=== PATIENT | female | born 1985 | race Caucasian/White ===

== ENCOUNTER 2019-03-14 05:08 | Inpatient (IN) | payer BC ==
[2019-03-14] MEDS ORDERED: Lidocaine 1% 50 ML MDV INJECT PRN (05:21)
[2019-03-14] MEDS ORDERED: Water For Irrigation,Sterile 1,000 ML Container IRR PRN (05:21)
[2019-03-14] MEDS ORDERED: Methylergonovine 0.2 MG/1 ML Amp IM PRN ×2 (05:21→11:26)
[2019-03-14] MEDS ORDERED: Sodium Chloride 0.9% 2.5 ML Syringe FLUSH PRN (05:21)
[2019-03-14] MEDS ORDERED: Sodium Chloride 0.9% 10 ML SDV IV PRN (05:21)
[2019-03-14] MEDS ORDERED: Sodium Chloride 0.9% 10 ML Syringe FLUSH PRN (05:21)
[2019-03-14] MEDS ORDERED: Tranexamic Acid 1,000 MG in Sodium Chloride 0.9% 100 ML IV PRN (05:21)
[2019-03-14] MEDS ORDERED: Nalbuphine 10 MG/1 ML Vial IVPUSH PRN (05:21)
[2019-03-14] MEDS ORDERED: Ondansetron 4 MG/2 ML SDV IVPUSH PRN (05:21)
[2019-03-14] MEDS ORDERED: Butorphanol 1 MG/ML SDV IVPUSH PRN (05:21)
[2019-03-14] MEDS ORDERED: Terbutaline 1 MG/ML SDV SUBCUT PRN (05:21)
[2019-03-14] MEDS ORDERED: Carboprost Tromethamine 250 MCG/1 ML Amp IM PRN (05:21)
[2019-03-14] MEDS ORDERED: Misoprostol 200 MCG Tab PO PRN (05:21)
[2019-03-14] MEDS ORDERED: Oxytocin/0.9 % Sodium Chloride 30 UNIT/500 ML BAG IV SCH ×2 (05:30)
[2019-03-14] MEDS: Lactated Ringers 1,000 ML IV SCH ×2 (05:40→09:23)
--- NOTE | 2019-03-14 09:38 | PCM.PREANE ---
Preanesthetic Assessment - Anesthesia/Transfusion/Family Hx Anesthesia History: Prior Anesthesia Without Reaction Family History of Anesthesia Reaction: No Transfusion History: No Prior Transfusion(s) - Review of Systems General: No Symptoms Pulmonary: No Symptoms Cardiovascular: No Symptoms Gastrointestinal: No Symptoms Neurological: No Symptoms Other: Reports: None - Physical Assessment NPO Status Date: 03/14/19 NPO Status Time: 09:00 (water) Height: 5 ft 5 in Weight: 73.482 kg ASA Class: 2E Mental Status: Alert & Oriented x3 Airway Class: Mallampati = 1 Dentition: Reports: Normal Dentition Thyro-Mental Finger Breadths: 3 ROM/Head Extension: Full Lungs: Clear to Auscultation, Normal Respiratory Effort Cardiovascular: Regular Rate, Regular Rhythm - Lab Values: Laboratory Last Values WBC 6.07 K/uL (4.0-11.0) 03/14/19 05:33 RBC 3.94 M/uL (4.30-5.90) L 03/14/19 05:33 Hgb 12.4 g/dL (12.0-16.0) 03/14/19 05:33 Hct 36.5 % (36.0-46.0) 03/14/19 05:33 MCV 92.6 fL (80.0-98.0) 03/14/19 05:33 MCH 31.5 pg (27.0-32.0) 03/14/19 05:33 MCHC 34.0 g/dL (31.0-37.0) 03/14/19 05:33 RDW Std Deviation 44.9 fl (28.0-62.0) 03/14/19 05:33 RDW Coeff of Graham 13 % (11.0-15.0) 03/14/19 05:33 Plt Count 210 K/uL (150-400) 03/14/19 05:33 MPV 11.80 fL (7.40-12.00) 03/14/19 05:33 Nucleated RBC % 0.0 /100WBC 03/14/19 05:33 Nucleated RBCs # 0 K/uL 03/14/19 05:33 Blood Type A POSITIVE 03/14/19 05:33 Antibody Screen NEGATIVE 03/14/19 05:33 - Allergies Allergies/Adverse Reactions: Allergies Allergy/AdvReac Type Severity Reaction Status Date / Time cefaclor [From [facility]] Allergy Rash Verified 03/14/19 05:20 - Acknowledgements Anesthesia Type Planned: Epidural Pt an Appropriate Candidate for the Planned Anesthesia: Yes Alternatives and Risks of Anesthesia Discussed w Pt/Guardian: Yes Pt/Guardian Understands and Agrees with Anesthesia Plan: Yes PreAnesthesia Questionnaire HEENT History: Reports: 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: Neurological History: Reports: Migraines Hematologic History: Reports: Other (See Below) Other Hematologic History: gestational thrombocytopenia - Past Surgical History HEENT Surgical History: Reports: Oral Surgery Neurological Surgical History: Reports: None - SUBSTANCE USE Smoking Status *Q: Never Smoker Recreational Drug Use History: No - HOME MEDS Home Medications: Home Meds Doxylamine Succinate [Unisom] 25 mg PO PRN 03/14/19 [History] PNV95/Ferrous Fumarate/FA [ Tablet] 1 tab PO DAILY 03/14/19 [History] - CURRENT (IN HOUSE) MEDS Current Meds: Current Medications Butorphanol Tartrate (Stadol) 1 mg IVPUSH Q1H PRN PRN Reason: Pain Carboprost Tromethamine (Hemabate Ds) 250 mcg IM ASDIRECTED PRN PRN Reason: Post Hemorrhage Lactated Ringer's (Ringers, Lactated) 1,000 mls @ 150 mls/hr IV ASDIRECTED BETTIE Last Admin: 03/14/19 09:23 Dose: 150 mls/hr Oxytocin/Sodium Chloride (Oxytocin 30 Unit/500 Ml-Ns) 30 unit in 500 mls @ 999 mls/hr IV TITRATE BETTIE Oxytocin/Sodium Chloride (Oxytocin 30 Unit/500 Ml-Ns) 30 unit in 500 mls @ 2 mls/hr IV TITRATE BETTIE; Protocol Last Titration: 03/14/19 08:38 Dose: 12 munits/min, 12 mls/hr Tranexamic Acid 1,000 mg/ (Sodium Chloride) 110 mls @ 660 mls/hr IV ONETIME PRN PRN Reason: Bleeding Lidocaine HCl (Xylocaine 1%) 50 ml INJECT ONETIME PRN PRN Reason: Laceration repair Methylergonovine Maleate (Methergine) 0.2 mg IM ASDIRECTED PRN PRN Reason: Post Hemorrhage Misoprostol (Cytotec) 200 mcg PO ONETIME PRN PRN Reason: Post Hemorrhage Nalbuphine HCl (Nubain) 10 mg IVPUSH Q1H PRN PRN Reason: Pain (severe 7-10) Ondansetron HCl (Zofran) 4 mg IVPUSH Q6H PRN PRN Reason: Nausea/Vomiting Sodium Chloride (Saline Flush) 10 ml FLUSH ASDIRECTED PRN PRN Reason: Keep Vein Open Sodium Chloride (Saline Flush) 2.5 ml FLUSH ASDIRECTED PRN PRN Reason: Keep Vein Open Sodium Chloride (Normal Saline) 10 ml IV ASDIRECTED PRN PRN Reason: IV Use Sterile Water (Sterile Water For Irrigation) 1,000 ml IRR ASDIRECTED PRN PRN Reason: delivery Terbutaline Sulfate (Brethine) 0.25 mg SUBCUT ASDIRECTED PRN PRN Reason: Tacysystole Discontinued Medications Fentanyl/Bupivacaine HCl (Cnhgkznh-Arafd-Nc 2 Mcg/Ml-0.125%) Confirm Administered Dose 100 mls @ as directed .ROUTE .[facility]-MED ONE Stop: 03/14/19 09:13
--- NOTE | 2019-03-14 11:23 | PCM.DEL ---
L & D Note - General Info Date of Service: 03/14/19 Mother's Due Date: 03/15/19 - Delivery Note Labor: Augmented by ARM, Induced by Oxytocin Delivery Outcome: Livebirth Delivery Method: Spontaneous Vaginal Delivery-Single Presentation: Left Occiput Anterior (CESAR) Nuchal Cord: None Anesthesia Type: None Amniotic Fluid Description: Clear Episiotomy Type: None Laceration: None Placenta: Intact, Spontaneous Cord: 3 Vessels Estimated Blood Loss: 200 Resuscitation Needed: No : Suctioned Score 1 min: 8 Score 5 min: 8 - General Info Date of Service: 03/14/19 - Patient Data Weight - Most Recent: 73.482 kg Lab Results Last 24 Hours: Laboratory Results - last 24 hr 03/14/19 03/14/19 Range/Units 05:33 05:33 WBC 6.07 (4.0-11.0) K/uL RBC 3.94 L (4.30-5.90) M/uL Hgb 12.4 (12.0-16.0) g/dL Hct 36.5 (36.0-46.0) % MCV 92.6 (80.0-98.0) fL MCH 31.5 (27.0-32.0) pg MCHC 34.0 (31.0-37.0) g/dL RDW Std Deviation 44.9 (28.0-62.0) fl RDW Coeff of Graham 13 (11.0-15.0) % Plt Count 210 (150-400) K/uL MPV 11.80 (7.40-12.00) fL Nucleated RBC % 0.0 /100WBC Nucleated RBCs # 0 K/uL Blood Type A POSITIVE Antibody Screen NEGATIVE Med Orders - Current: Current Medications Butorphanol Tartrate (Stadol) 1 mg IVPUSH Q1H PRN PRN Reason: Pain Carboprost Tromethamine (Hemabate Ds) 250 mcg IM ASDIRECTED PRN PRN Reason: Post Hemorrhage Lactated Ringer's (Ringers, Lactated) 1,000 mls @ 150 mls/hr IV ASDIRECTED BETTIE Last Admin: 03/14/19 09:23 Dose: 150 mls/hr Oxytocin/Sodium Chloride (Oxytocin 30 Unit/500 Ml-Ns) 30 unit in 500 mls @ 999 mls/hr IV TITRATE BETTIE Oxytocin/Sodium Chloride (Oxytocin 30 Unit/500 Ml-Ns) 30 unit in 500 mls @ 2 mls/hr IV TITRATE BETTIE; Protocol Last Titration: 03/14/19 08:38 Dose: 12 munits/min, 12 mls/hr Tranexamic Acid 1,000 mg/ (Sodium Chloride) 110 mls @ 660 mls/hr IV ONETIME PRN PRN Reason: Bleeding Lidocaine HCl (Xylocaine 1%) 50 ml INJECT ONETIME PRN PRN Reason: Laceration repair Methylergonovine Maleate (Methergine) 0.2 mg IM ASDIRECTED PRN PRN Reason: Post Hemorrhage Misoprostol (Cytotec) 200 mcg PO ONETIME PRN PRN Reason: Post Hemorrhage Nalbuphine HCl (Nubain) 10 mg IVPUSH Q1H PRN PRN Reason: Pain (severe 7-10) Ondansetron HCl (Zofran) 4 mg IVPUSH Q6H PRN PRN Reason: Nausea/Vomiting Sodium Chloride (Saline Flush) 10 ml FLUSH ASDIRECTED PRN PRN Reason: Keep Vein Open Sodium Chloride (Saline Flush) 2.5 ml FLUSH ASDIRECTED PRN PRN Reason: Keep Vein Open Sodium Chloride (Normal Saline) 10 ml IV ASDIRECTED PRN PRN Reason: IV Use Sterile Water (Sterile Water For Irrigation) 1,000 ml IRR ASDIRECTED PRN PRN Reason: delivery Terbutaline Sulfate (Brethine) 0.25 mg SUBCUT ASDIRECTED PRN PRN Reason: Tacysystole Discontinued Medications Fentanyl/Bupivacaine HCl (Prpfzlnp-Ljoaw-Qn 2 Mcg/Ml-0.125%) Confirm Administered Dose 100 mls @ as directed .ROUTE .STK-MED ONE Stop: 03/14/19 09:13 - Problem List & Annotations (1) Vaginal delivery SNOMED Code(s): 634949815 Code(s): O80 - ENCOUNTER FOR FULL-TERM UNCOMPLICATED DELIVERY Status: Acute Current Visit: No - Problem List Review Problem List Initiated/Reviewed/Updated: Yes - My Orders Last 24 Hours: My Active Orders 03/14/19 05:21 Patient Status [ADT] Routine Bedrest Bathroom Privileges [RC] ASDIRECTED Communication Order [RC] ASDIRECTED Communication Order [RC] ASDIRECTED Heart Tones [RC] CONTINUOUS Non Stress Test [RC] PER UNIT ROUTINE May Shower [RC] ASDIRECTED Notify Provider [RC] PRN Notify Provider [RC] PRN Oxygen Therapy [RC] ASDIRECTED Up ad Shereen [RC] ASDIRECTED Vaginal Exam [RC] PRN Vaginal Exam [RC] PRN Vital Signs [RC] PER UNIT ROUTINE Vital Signs [RC] PER UNIT ROUTINE Butorphanol [Stadol] 1 mg IVPUSH Q1H PRN Carboprost Tromethamine [Hemabate DS] 250 mcg IM ASDIRECTED PRN Lidocaine 1% [Xylocaine 1%] 50 ml INJECT ONETIME PRN Methylergonovine [Methergine] 0.2 mg IM ASDIRECTED PRN Nalbuphine [Nubain] 10 mg IVPUSH Q1H PRN Ondansetron [Zofran] 4 mg IVPUSH Q6H PRN Sodium Chloride 0.9% [Normal Saline] 10 ml IV ASDIRECTED PRN Sodium Chloride 0.9% [Saline Flush] 10 ml FLUSH ASDIRECTED PRN Sodium Chloride 0.9% [Saline Flush] 2.5 ml FLUSH ASDIRECTED PRN Terbutaline [Brethine] 0.25 mg SUBCUT ASDIRECTED PRN Tranexamic Acid [Cyklokapron] 1,000 mg Sodium Chloride 0.9% [Normal Saline] 100 ml IV ONETIME Water For Irrigation,Sterile [Sterile Water for Irrigation] 1,000 ml IRR ASDIRECTED PRN miSOPROStol [Cytotec] 200 mcg PO ONETIME PRN Scalp Electrode [WOMSER] Per Unit Routine Peripheral IV Insertion Adult [OM.PC] Routine Resuscitation Status Routine 03/14/19 05:30 Lactated Ringers [Ringers, Lactated] 1,000 ml IV ASDIRECTED Oxytocin/0.9 % Sodium Chloride [Oxytocin 30 Unit/500 ML-NS] 30 unit in 500 ml IV TITRATE Oxytocin/0.9 % Sodium Chloride [Oxytocin 30 Unit/500 ML-NS] 30 unit in 500 ml IV TITRATE Medication Administration Instruction [OM.PC] Q3H 03/14/19 Breakfast Clear Liquid Diet [DIET]
[2019-03-14] MEDS ORDERED: Lanolin 100% Cream 7 GM Tube TOP PRN (11:26)
[2019-03-14] MEDS ORDERED: Docusate Sodium 100 MG Cap PO PRN (11:26)
[2019-03-14] MEDS ORDERED: oxyCODONE 5 MG Tab PO PRN (11:26)
[2019-03-14] MEDS ORDERED: Acetaminophen 500 MG Tab PO PRN ×2 (11:26)
[2019-03-14] MEDS ORDERED: Benzocaine/Menthol 20%-0.5% Spray 78 GM Cannister TOP PRN (11:26)
[2019-03-14] MEDS ORDERED: Bisacodyl 10 MG Supp RECTAL PRN (11:26)
[2019-03-14] MEDS ORDERED: Ibuprofen 400 MG Tab PO PRN (11:26)
[2019-03-14] MEDS ORDERED: Witch Hazel Medicated Pads 40/Jar TOP PRN (11:26)
[2019-03-14] MEDS ORDERED: Ibuprofen 800 MG Tab PO PRN (11:26)
--- NOTE | 2019-03-14 13:22 | OR ---
SURGEON: Amee Gustafson M.D. DATE OF PROCEDURE: 03/14/2019 PREOPERATIVE DIAGNOSES: A 39-6/7 weeks' intrauterine , gestational thrombocytopenia. POSTOPERATIVE DIAGNOSES: A 39-6/7 weeks' intrauterine , gestational thrombocytopenia. PROCEDURES: Pitocin induction of labor with artificial rupture of membranes, term spontaneous vaginal delivery. PRIMARY SURGEON: Amee Gustafson MD. ANESTHESIA: Epidural. ESTIMATED BLOOD LOSS: Less than 200 mL. FINDINGS: Live-born male. scores 8 and 8. Weight of 3600 g. There were no periurethral, vaginal sidewall, cervical, rectal, or perineal lacerations. Placenta was spontaneous, Schultze intact with 3 vessels. COMPLICATIONS: None known. DISPOSITION: Mother and baby are in LDR in good condition. BRIEF HISTORY: This is a 34-year-old female, G3, P 2-0-0-2. She presents at 39-6/7 weeks' gestation with gestational thrombocytopenia. Platelets have been 109 to 110 in clinic. She did not receive steroids. However, on the day of admission, platelets were 210. She was admitted to Labor and Delivery. She was started on Pitocin. When she was 3 to 4 cm dilated, artificial rupture of membranes was performed. Clear fluid was noted. She received an epidural for pain control. She progressed to complete with category 1 heart tones throughout labor. DESCRIPTION OF PROCEDURE: With the patient in dorsal lithotomy position, the patient pushed over 3 contractions to a 5+ station at which time the head was delivered spontaneously and atraumatically over the perineum with support with subsequent delivery of the infant's shoulders and body without any difficulty. The was bulb suctioned by nose and mouth. Cord was clamped x2 and cut after it had ceased to pulsate, and the was handed to the mother in the presence of nurse attending delivery. The was a liveborn male, scores 8 and 8, weighing 3600 g. Cord blood was collected for cord ABGs as well as routine cord blood sampling. Pitocin was initiated after delivery of the infant to assist with delivery of the placenta, which was delivered spontaneously, Schultze intact with 3 vessels. Upon inspection of the pelvis and perineum, there were no periurethral, vaginal sidewall, cervical, rectal, or perineal lacerations. EBL was less than 200 mL. There were no complications. Mother and baby are in LDR in good condition. LEA GARCIA /[id number]
--- NOTE | 2019-03-14 21:12 | PCM48HPAN ---
Post Anesthesia Note - EVALUATION WITHIN 48HRS OF ANESTHETIC Vital Signs in Normal Range: Yes Patient Participated in Evaluation: Yes Respiratory Function Stable: Yes Airway Patent: Yes Cardiovascular Function Stable: Yes Hydration Status Stable: Yes Pain Control Satisfactory: Yes Nausea and Vomiting Control Satisfactory: Yes Mental Status Recovered: Yes Resp Rate: 16
--- NOTE | 2019-03-15 07:42 | PCM.PNPP ---
- General Info Date of Service: 03/15/19 Functional Status: Reports: Pain Controlled - Review of Systems General: Reports: No Symptoms HEENT: Reports: No Symptoms Pulmonary: Reports: No Symptoms Cardiovascular: Reports: No Symptoms Gastrointestinal: Reports: No Symptoms Genitourinary: Reports: No Symptoms Musculoskeletal: Reports: No Symptoms Skin: Reports: No Symptoms Neurological: Reports: No Symptoms Psychiatric: Reports: No Symptoms - Patient Data Vital Signs - Most Recent: Last Vital Signs Temp 36.6 C 03/15/19 04:00 Pulse 78 03/15/19 04:00 Resp 14 03/15/19 04:00 BP 106/64 03/15/19 04:00 Pulse Ox 96 03/15/19 04:00 Weight - Most Recent: 73.482 kg Lab Results - Last 24 Hours: Laboratory Results - last 24 hr 03/14/19 03/15/19 Range/Units 11:05 04:58 Hgb 11.7 L (12.0-16.0) g/dL Hct 35.8 L (36.0-46.0) % Cord ABG pH 7.348 (7.18-7.38) Cord ABG Base Excess -4 (-10--2) Cord VBG pH 7.261 (7.25-7.45) Cord VBG Base Excess -6 (-10--2) Med Orders - Current: Current Medications Acetaminophen (Tylenol Extra Strength) 500 mg PO Q4H PRN PRN Reason: Pain Acetaminophen (Tylenol Extra Strength) 1,000 mg PO Q4H PRN PRN Reason: Pain Benzocaine/Menthol (Dermoplast Pain Relief 20%-0.5% [place]) 78 gm TOP ASDIRECTED PRN PRN Reason: Perineal Comfort Measure Bisacodyl (Dulcolax) 10 mg RECTAL ONETIME PRN PRN Reason: Constipation Docusate Sodium (Colace) 100 mg PO BID PRN PRN Reason: Constipation Last Admin: 03/14/19 20:24 Dose: 100 mg Emollient Ointment (Lansinoh Hpa) 0 gm TOP ASDIRECTED PRN PRN Reason: Sore Nipples Ibuprofen (Motrin) 400 mg PO Q4H PRN PRN Reason: Pain Ibuprofen (Motrin) 800 mg PO Q6H PRN PRN Reason: Pain Last Admin: 03/14/19 20:23 Dose: 800 mg Methylergonovine Maleate (Methergine) 0.2 mg IM ONETIME PRN PRN Reason: Excessive Vaginal Bleeding Oxycodone HCl (Oxycodone) 5 mg PO Q2H PRN PRN Reason: Pain Witch Rosa (Tucks) 1 pad TOP ASDIRECTED PRN PRN Reason: comfort care Discontinued Medications Butorphanol Tartrate (Stadol) 1 mg IVPUSH Q1H PRN PRN Reason: Pain Carboprost Tromethamine (Hemabate Ds) 250 mcg IM ASDIRECTED PRN PRN Reason: Post Hemorrhage Lactated Ringer's (Ringers, Lactated) 1,000 mls @ 150 mls/hr IV ASDIRECTED BETTIE Last Admin: 03/14/19 09:23 Dose: 150 mls/hr Oxytocin/Sodium Chloride (Oxytocin 30 Unit/500 Ml-Ns) 30 unit in 500 mls @ 999 mls/hr IV TITRATE BETTIE Oxytocin/Sodium Chloride (Oxytocin 30 Unit/500 Ml-Ns) 30 unit in 500 mls @ 2 mls/hr IV TITRATE EBTTIE; Protocol Last Titration: 03/14/19 08:38 Dose: 12 munits/min, 12 mls/hr Tranexamic Acid 1,000 mg/ (Sodium Chloride) 110 mls @ 660 mls/hr IV ONETIME PRN PRN Reason: Bleeding Fentanyl/Bupivacaine HCl (Vnuzjcxv-Drnhk-Ot 2 Mcg/Ml-0.125%) Confirm Administered Dose 100 mls @ as directed .ROUTE .[facility]-MED ONE Stop: 03/14/19 09:13 Lidocaine HCl (Xylocaine 1%) 50 ml INJECT ONETIME PRN PRN Reason: Laceration repair Methylergonovine Maleate (Methergine) 0.2 mg IM ASDIRECTED PRN PRN Reason: Post Hemorrhage Misoprostol (Cytotec) 200 mcg PO ONETIME PRN PRN Reason: Post Hemorrhage Nalbuphine HCl (Nubain) 10 mg IVPUSH Q1H PRN PRN Reason: Pain (severe 7-10) Ondansetron HCl (Zofran) 4 mg IVPUSH Q6H PRN PRN Reason: Nausea/Vomiting Sodium Chloride (Saline Flush) 10 ml FLUSH ASDIRECTED PRN PRN Reason: Keep Vein Open Sodium Chloride (Saline Flush) 2.5 ml FLUSH ASDIRECTED PRN PRN Reason: Keep Vein Open Sodium Chloride (Normal Saline) 10 ml IV ASDIRECTED PRN PRN Reason: IV Use Sterile Water (Sterile Water For Irrigation) 1,000 ml IRR ASDIRECTED PRN PRN Reason: delivery Last Admin: 03/14/19 12:30 Dose: 1,000 ml Terbutaline Sulfate (Brethine) 0.25 mg SUBCUT ASDIRECTED PRN PRN Reason: Tacysystole - Interaction Infant Disposition, : in Room with Family Infant Interaction: Holding Infant Infant Feeding: Breastfed ; Nursed Well Support Person: - Recovery Exam Fundal Tone: Firm Fundal Level: At Umbilicus Fundal Placement: Midline Lochia Amount: Scant Lochia Color: Rubra/Red Perineum Description: Intact, Minimal Bruising/Swelling Episiotomy/Laceration: None Bladder Status: Voiding Urinary Elimination: Voided - Exam General: Alert, Oriented HEENT: Pupils Equal Neck: Supple Lungs: Normal Respiratory Effort GI/Abdominal Exam: Soft, Non-Tender, No Distention Skin: Warm, Dry, Intact Neurological: No New Focal Deficit Psy/Mental Status: Alert, Normal Affect, Normal Mood - Problem List & Annotations (1) Vaginal delivery SNOMED Code(s): 513812441 Code(s): O80 - ENCOUNTER FOR FULL-TERM UNCOMPLICATED DELIVERY Status: Acute Current Visit: No - Problem List Review Problem List Initiated/Reviewed/Updated: Yes - My Orders Last 24 Hours: My Active Orders 03/14/19 11:26 Patient Status [ADT] Routine May Shower [RC] ASDIRECTED Up ad Shereen [RC] ASDIRECTED Vital Signs [RC] PER UNIT ROUTINE Acetaminophen [Tylenol Extra Strength] 1,000 mg PO Q4H PRN Acetaminophen [Tylenol Extra Strength] 500 mg PO Q4H PRN Benzocaine/Menthol [Dermoplast Pain Relief 20%-0.5% [place]] 78 gm TOP ASDIRECTED PRN Bisacodyl [Dulcolax] 10 mg RECTAL ONETIME PRN Docusate Sodium [Colace] 100 mg PO BID PRN Ibuprofen [Motrin] 400 mg PO Q4H PRN Ibuprofen [Motrin] 800 mg PO Q6H PRN Lanolin [Lansinoh HPA] See Dose Instructions TOP ASDIRECTED PRN Methylergonovine [Methergine] 0.2 mg IM ONETIME PRN Witch Rosa [Tucks] 1 pad TOP ASDIRECTED PRN oxyCODONE 5 mg PO Q2H PRN Assess Lochia [WOMSER] Per Unit Routine Assess Uterine Involution [WOMSER] Per Unit Routine Peripheral IV Discontinue [OM.PC] Routine Resuscitation Status Routine 03/14/19 11:27 Perineal Care [OM.PC] Per Unit Routine 03/14/19 Lunch Regular Diet [DIET] 03/15/19 07:19 Ready for Discharge [RC] PER UNIT ROUTINE - Assessment Assessment:: PPF#1 after , stable minimal lochia, well. Senthil like to go home today. - Plan Plan:: Dismiss to home, discharge instructions reviewed.
[2019-03-15 08:20] VITALS: BP 110/75
== END 2019-03-15 13:44 | disposition home or self-care (01) | DRG 560 ==
LOC: MW.OB 05:08 → OBSVTOIN 11:05 → MW.OB 15:00
PROVIDERS: ADMIT Obstetrics & Gynecology; ATTEND Obstetrics & Gynecology
PROC: 10E0XZZ Delivery of Products of Conception, External Approach (ICD-10-PCS; principal; 2019-03-14)
PROC: 3E033VJ Introduction of Other Hormone into Peripheral Vein, Percutaneous Approach (ICD-10-PCS; 2019-03-14)
PROC: 10907ZC Drainage of Amniotic Fluid, Therapeutic from Products of Conception, Via Natural or Artificial Opening (ICD-10-PCS; 2019-03-14)
DX: O99.12 Other diseases of the blood and blood-forming organs and certain disorders involving the immune mechanism complicating childbirth (principal); D69.6 Thrombocytopenia, unspecified; O75.89 Other specified complications of labor and delivery; G43.909 Migraine, unspecified, not intractable, without status migrainosus; Z3A.39 39 weeks gestation of pregnancy; Z37.0 Single live birth
CPT/HCPCS: 36415; 59025; 59409; 82803; 85014; 85018; 85027; 86850; 86900; 86901; A9270-GY; J2590; J7120

== ENCOUNTER 2021-05-23 08:18 | Day surgery (SDC) | payer BC ==
[~2021-05-23 08:18] MED LIST: Glycopyrrolate 0.2 MG/ML SDV ONE; Ketorolac 30 MG/ML SDV ONE; Lactated Ringers 1,000 ML IV SCH; Lidocaine 2% 5 ML SDV ONE; Midazolam 1 MG/ML 2 ML SDV ONE; Ondansetron 4 MG/2 ML SDV ONE; Propofol 200 MG/20 ML SDV ONE; fentaNYL 100 MCG/2 ML SDV ONE
[2021-05-23] MEDS ORDERED: Acetaminophen 1,000 MG in Premix Bag 1 BAG IV PRN (08:33)
[2021-05-23] MEDS ORDERED: fentaNYL 100 MCG/2 ML SDV IVPUSH PRN ×2 (08:33→08:56)
--- NOTE | 2021-05-23 08:55 | PCM.PREANE ---
Preanesthetic Assessment - Procedure Proposed Procedure: Hysteroscopy, D&C - Anesthesia/Transfusion/Family Hx Anesthesia History: Prior Anesthesia Without Reaction Family History of Anesthesia Reaction: No Transfusion History: No Prior Transfusion(s) - Review of Systems General: No Symptoms Pulmonary: No Symptoms Cardiovascular: No Symptoms Gastrointestinal: No Symptoms Neurological: No Symptoms Other: Reports: None - Physical Assessment NPO Status Date: 05/21/21 NPO Status Time: 18:00 Vital Signs: Last Vital Signs Temp 97.3 F 05/23/21 08:30 Pulse 72 05/23/21 08:30 Resp 15 05/23/21 08:30 BP 92/64 05/23/21 08:30 Pulse Ox 100 05/23/21 08:30 Height: 5 ft 4.5 in Weight: 52.617 kg ASA Class: 1 Mental Status: Alert & Oriented x3 Dentition: Reports: Normal Dentition Thyro-Mental Finger Breadths: 3 Mouth Opening Finger Breadths: 3 ROM/Head Extension: Full Lungs: Clear to Auscultation, Normal Respiratory Effort Cardiovascular: Regular Rate, Regular Rhythm - Allergies Allergies/Adverse Reactions: Allergies Allergy/AdvReac Type Severity Reaction Status Date / Time cefaclor [From Ceclor] Allergy Rash Verified 05/21/21 13:47 - Acknowledgements Anesthesia Type Planned: General Anesthesia Pt an Appropriate Candidate for the Planned Anesthesia: Yes Alternatives and Risks of Anesthesia Discussed w Pt/Guardian: Yes Pt/Guardian Understands and Agrees with Anesthesia Plan: Yes PreAnesthesia Questionnaire HEENT History: Reports: Other (See Below) Other HEENT History: wears glasses Cardiovascular History: Reports: None Respiratory History: Reports: None Gastrointestinal History: Reports: None Genitourinary History: Reports: None 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, Musculoskeletal History: Reports: None Neurological History: Reports: Migraines Other Neuro History: no recent migraines Psychiatric History: Reports: Anxiety Endocrine/Metabolic History: Reports: None Hematologic History: Reports: Other (See Below) Other Hematologic History: gestational thrombocytopenia Immunologic History: Reports: None Oncologic (Cancer) History: Reports: None Dermatologic History: Reports: None - Past Surgical History Head Surgeries/Procedures: Reports: None HEENT Surgical History: Reports: Oral Surgery Other HEENT Surgeries/Procedures: wisdom teeth removed Cardiovascular Surgical History: Reports: None Respiratory Surgical History: Reports: None GI Surgical History: Reports: None Female Surgical History: Reports: Breast Implant Neurological Surgical History: Reports: None Musculoskeletal Surgical History: Reports: None Oncologic Surgical History: Reports: None - SUBSTANCE USE Tobacco Use Status *Q: Never Tobacco User Recreational Drug Use History: No - HOME MEDS Home Medications: Home Meds Pnv No.95/Ferrous Fum/Folic AC [ Tablet] 1 tab PO DAILY 03/14/19 [History] Escitalopram [Lexapro] 20 mg PO DAILY 05/21/21 [History] Tretinoin [Retin-A] 1 applic TOP BEDTIME 05/21/21 [History] - CURRENT (IN HOUSE) MEDS Current Meds: Current Medications Fentanyl (Fentanyl 100 Mcg/2 Ml Sdv) 50 mcg IVPUSH Q5M PRN PRN Reason: Pain Lactated Ringer's (Ringers, Lactated) 1,000 mls @ 100 mls/hr IV ASDIRECTED BETTIE Acetaminophen 1,000 mg/ Premix 100 mls @ 400 mls/hr IV ONETIME PRN PRN Reason: Pain Discontinued Medications Fentanyl (Fentanyl 100 Mcg/2 Ml Sdv) Confirm Administered Dose 100 mcg .ROUTE .STK-MED ONE Stop: 05/23/21 07:18 Glycopyrrolate (Glycopyrrolate 0.2 Mg/Ml Sdv) Confirm Administered Dose 0.2 mg .ROUTE .STK-MED ONE Stop: 05/23/21 07:21 Ketorolac Tromethamine (Ketorolac 30 Mg/Ml Sdv) Confirm Administered Dose 30 mg .ROUTE .STK-MED ONE Stop: 05/23/21 07:21 Lidocaine (Lidocaine 2% 5 Ml Sdv) Confirm Administered Dose 5 ml .ROUTE .STK-MED ONE Stop: 05/23/21 07:21 Midazolam HCl (Midazolam 1 Mg/Ml 2 Ml Sdv) Confirm Administered Dose 2 mg .ROUTE .STK-MED ONE Stop: 05/23/21 07:18 Ondansetron HCl (Ondansetron 4 Mg/2 Ml Sdv) Confirm Administered Dose 4 mg .ROUTE .STK-MED ONE Stop: 05/23/21 07:21 Propofol (Propofol 200 Mg/20 Ml Sdv) Confirm Administered Dose 200 mg .ROUTE .STK-MED ONE Stop: 05/23/21 07:17
[2021-05-23] MEDS ORDERED: Naloxone 0.4 MG/ML Syringe IVPUSH PRN (08:56)
[2021-05-23] MEDS ORDERED: Ondansetron 4 MG/2 ML SDV IVPUSH PRN (08:56)
[2021-05-23] MEDS ORDERED: HYDROmorphone 2 MG/ML Syringe IVPUSH PRN (08:56)
[2021-05-23] MEDS ORDERED: Morphine 2 MG/ML SYRINGE IVPUSH PRN (08:56)
[2021-05-23] MEDS ORDERED: Metoclopramide 10 MG/2 ML SDV IVPUSH PRN (08:56)
[2021-05-23] MEDS ORDERED: Albuterol 0.083% 2.5 MG/3 ML Neb Soln NEB PRN (08:56)
--- NOTE | 2021-05-23 09:26 | PCM.OPNOTE ---
- General Post-Op/Procedure Note Date of Surgery/Procedure: 05/23/21 Operative Procedure(s): hysteroscopic polypectomy, fractional D&C Findings: large endometrial polyp left fundus, uterus sounds to 8 cm. Otherwise normal uterine cavity. Uterus anteverted 8 week size. Pre Op Diagnosis: menometrorrhagia, endometrial polyp Post-Op Diagnosis: Same Anesthesia Technique: General LMA Primary Surgeon: Amee Gustafson Anesthesia Provider: Rao Carpenter Pathology: endometrial polyp, endocervical curettings, endometrial curettings. Fluid Replacement, Intraop: 500 Output, Urine Amount: 25 EBL in mLs: 25 Drain/Tube Comments:: hysteroscopic deficit 75 Complications: None Known Condition: Good
--- NOTE | 2021-05-23 09:43 | PCM.POSTAN ---
POST ANESTHESIA ASSESSMENT - MENTAL STATUS Mental Status: Somnolent - VITAL SIGNS Vital Signs: Last Vital Signs Temp 97.5 F 05/23/21 09:37 Pulse 68 05/23/21 09:37 Resp 16 05/23/21 09:37 BP 107/68 05/23/21 09:37 Pulse Ox 100 05/23/21 09:37 - RESPIRATORY Respiratory Status: Respiratory Rate WNL - CARDIOVASCULAR CV Status: Pulse Rate WNL - GASTROINTESTINAL GI Status: No Symptoms - POST OP HYDRATION Hydration Status: Adequate & Stable - OBSERVATIONS Free Text/Narrative:: Pt doing well post-op. VSS
--- NOTE | 2021-05-23 09:53 | PCM48HPAN ---
Post Anesthesia Note - EVALUATION WITHIN 48HRS OF ANESTHETIC Vital Signs in Normal Range: Yes Patient Participated in Evaluation: Yes Respiratory Function Stable: Yes Airway Patent: Yes Cardiovascular Function Stable: Yes Hydration Status Stable: Yes Pain Control Satisfactory: Yes Nausea and Vomiting Control Satisfactory: Yes Mental Status Recovered: Yes Vital Signs: Last Vital Signs Temp 97.5 F 05/23/21 09:37 Pulse 69 05/23/21 09:48 Resp 15 05/23/21 09:48 BP 98/61 05/23/21 09:48 Pulse Ox 100 05/23/21 09:48 - COMMENTS/OBSERVATIONS Free Text/Narrative:: Pt doing well post-op. VSS. No apparent anesthetic complications. Dr. Sudhir Vang
[2021-05-23 10:28] VITALS: BP 108/69; PULSE 63
--- NOTE | 2021-05-23 12:51 | OR ---
SURGEON: Amee Gustafson M.D. DATE OF PROCEDURE: 05/23/2021 PREOPERATIVE DIAGNOSES: 1. Menometrorrhagia. 2. Endometrial polyp. POSTOPERATIVE DIAGNOSES: 1. Menometrorrhagia. 2. Endometrial polyp. PROCEDURES: 1. Hysteroscopic polypectomy. 2. Fractional D and C. PRIMARY SURGEON: Amee Gustafson M.D. ANESTHESIA: General LMA. ESTIMATED BLOOD LOSS: Less than 25 mL. FLUIDS: 500 mL crystalloid. HYSTEROSCOPIC DEFICIT: 75 mL normal saline. FINDINGS: Uterus anteverted at 8 weeks' size, sounds to 8 cm. On hysteroscopic evaluation, bilateral tubal ostia were identified. There was a single large endometrial polyp from the left fundus, and this was removed. After this, the endometrial cavity appeared normal. COMPLICATIONS: None known. DISPOSITION: Stable to Recovery. PATHOLOGY SPECIMENS: Endometrial polyp, endometrial curettings, endocervical curettings. BRIEF HISTORY: This is a 36-year-old female. She presented with irregular heavy periods, prolonged and lasting up to 2 weeks. Evaluation with saline ultrasound revealed a large endometrial polyp. She was offered hysteroscopic polypectomy versus expectant management. Also associated with polypectomy, offered Mirena IUD versus ablation. She desires to proceed with the polypectomy only and then monitor for symptoms. Following risks were discussed including bleeding, infection, uterine perforation with injury to surrounding organs, risk of thromboembolic event, and risk of anesthesia. Understanding all these risks, she does desire to proceed with a hysteroscopic polypectomy. DESCRIPTION OF PROCEDURE: With the patient in dorsal lithotomy position, under adequate general LMA analgesia, the perineum and vagina were prepped with Betadine and draped in usual fashion for vaginal surgery. SCDs were in place. The bladder had been drained with a straight cath, and appropriate time-out was held. Bimanual examination revealed an 8-week size anteverted uterus. Speculum was placed in the vagina. The anterior lip of the cervix was grasped with an Allis clamp. The cervix was dilated to 6 mm Hegar dilator. The hysteroscope was placed into the uterine cavity. There was excellent visualization. Bilateral tubal ostia were identified. The large uterine polyp was identified. The MyoSure was then utilized to excise the polyp. With this, the cavity appeared completely normal. Therefore, the hysteroscope was removed. Sharp curettage of the endocervix was performed and collected with a Cytobrush and sent to Pathology. Sharp curettage of the endometrium was then performed and sent as a separate specimen. All of the instruments were removed from the vagina. Final sponge, needle, and instrument counts were reported as correct. There were no known complications. The patient was transferred to Recovery in good condition. LEA GARCIA /[id number]
== END 2021-05-23 11:00 | disposition home or self-care (01) ==
LOC: MW.SDS 08:18
PROVIDERS: ATTEND Obstetrics & Gynecology
DX: N84.0 Polyp of corpus uteri (principal); N93.9 Abnormal uterine and vaginal bleeding, unspecified; Z88.8 Allergy status to other drugs, medicaments and biological substances
CPT/HCPCS: 58558; 88305; J1885; J2250; J2370; J2704; J3490; J7120; 00952; J2405; J3010